=== PATIENT | male | born 1970 ===

== ENCOUNTER 2022-05-02 14:36 | Inpatient (IN) ==
[2022-05-02 15:30] LABS: INR 1.2; PT Patient Result 13.5 SECS (10.1-12.1); Partial Thromboplastin Time 30.6 SECS (23.7-32.9)
[2022-05-02] MEDS ORDERED: SODIUM CHLORIDE 0.9% 1,000 ML IV STA (15:30)
[2022-05-02 15:36] LABS: Alanine Aminotransferase 198 U/L (16-61); Albumin 3.2 G/DL (3.4-5.0); Alkaline Phosphatase 239 U/L (45-117); Aspartate Amino Transferase 263 U/L (0-37); Blood Urea Nitrogen 7 MG/DL (7-18); Calcium 8.9 MG/DL (8.5-10.1); Carbon Dioxide 29 MMOL/L (21-32); Chloride 91 MMOL/L (98-107); Glucose 155 MG/DL (74-106); Osmolality,Calculated 262.7 MOS/KG (273-304); Potassium 2.8 MMOL/L (3.5-5.1); Sodium 131 MMOL/L (136-145); Total Protein 7.7 G/DL (6.4-8.2)
[2022-05-02 16:37] LABS: Basophils % 0.2 % (0.0-0.8); Eosinophils % 0.5 % (0.00-10.9); Hematocrit 37.8 VOL% (42.0-52.0); Hemoglobin 13.2 GM/DL (14.0-18.0); Immature Granulocytes % 0.7 %; Immature Granulocytes Absolute 0.03 #; Lymphocytes # 0.8 10*3/uL (1.4-4.0); Lymphocytes % 18.9 % (21.2-54.2); Mean Corpuscular HGB Conc 34.9 GM/DL (32-36); Mean Corpuscular Volume 96.2 FL (87-102); Mean Platelet Volume 10.4 FL (9.6-12.0); Monocytes # 0.6 10*3/uL (0.11-0.8); Monocytes % 14.7 % (1.7-12.7); Red Blood Count 3.93 MC/CUMM (3.8-5.5); Red Cell Distribution Width 13.8 % (9.3-17.3); White Blood Count 4.35 T/CUMM (4-12)
[2022-05-02 16:39] LABS: Platelet Count 62 T/CUMM (130-400)
[2022-05-02 16:58] LABS: RBC,Urine 1 /HPF (0-4)
[2022-05-02 17:00] LABS: Platelet Estimate Decreased
[2022-05-02] MEDS ORDERED: POTASSIUM CHLORIDE 20 MEQ TABLET PO STA (17:03)
[2022-05-02 17:04] LABS: Glucose,Urine (UA) 500 mg/dL (Negative); Ketones,Urine 40 mg/dL (Negative); Nitrite,Urine Negative (Negative); Protein,Urine Negative (Negative); Urine Appearance Slightly Hazy (Clear); Urine Color Yellow (Yellow)
[2022-05-02 17:05] LABS: Bilirubin,Urine Small mg/dL (Negative); Blood, Urine Negative (Negative); Urine Urobilinogen > 8.0 eU/dL (<2.0)
[2022-05-02 17:17] LABS: Barbiturates Screen,Urine Negative (Negative); Benzodiazepines Screen,Urine Negative (Negative); Cannabinoid Screen,Urine Negative (Negative); Opiate Screen,Urine Positive (Negative); Phencyclidine Screen,Urine Negative (Negative)
[2022-05-02] MEDS ORDERED: LORazepam 2 MG/1 ML VIAL IV STA (18:56)
[2022-05-02] MEDS ORDERED: hydrALAZINE 20 MG/1 ML VIAL IV PRN (19:12)
[2022-05-02] MEDS ORDERED: GLUCAGON 1 MG VIAL IM PRN (19:12)
[2022-05-02] MEDS ORDERED: ONDANSETRON 4 MG/2 ML VIAL IV PRN (19:12)
[2022-05-02] MEDS ORDERED: PROMETHAZINE 25 MG/1 ML VIAL IM PRN (19:12)
[2022-05-02] MEDS ORDERED: DEXTROSE 10% 250 ML BAG IV PRN (19:39)
[2022-05-02] MEDS ORDERED: THIAMINE INJ 100 MG, FOLIC ACID INJ 1 MG, MULTIVITAMIN INJ 10 ML in SODIUM CHLORIDE 0.9... IV ONE (20:00)
[2022-05-02] MEDS: INSULIN LISPRO 100 UNIT/ML SUBCUT SCH (21:23)
[2022-05-02] MEDS: ENOXAPARIN 40 MG/0.4 ML SYRINGE SUBCUT SCH (21:25)
[2022-05-03 01:33] LABS: Basophils % 0.6 % (0.0-0.8); Eosinophils # 0.1 10*3/uL (0.0-0.87); Eosinophils % 1.7 % (0.00-10.9); Hematocrit 37.5 VOL% (42.0-52.0); Immature Granulocytes % 0.3 %; Immature Granulocytes Absolute 0.01 #; Lymphocytes # 0.7 10*3/uL (1.4-4.0); Lymphocytes % 21.6 % (21.2-54.2); Mean Corpuscular HGB Conc 34.7 GM/DL (32-36); Mean Corpuscular Volume 96.2 FL (87-102); Mean Platelet Volume 10.1 FL (9.6-12.0); Monocytes # 0.5 10*3/uL (0.11-0.8); Monocytes % 15.2 % (1.7-12.7); Neutrophils % 60.6 % (38.7-73.9); Platelet Count 61 T/CUMM (130-400); Red Cell Distribution Width 14.2 % (9.3-17.3); White Blood Count 3.43 T/CUMM (4-12)
[2022-05-03 02:12] LABS: Albumin 2.8 G/DL (3.4-5.0); Bilirubin,Total 3.9 MG/DL (0.20-1.00); Calcium 8.3 MG/DL (8.5-10.1); Osmolality,Calculated 266.4 MOS/KG (273-304); Potassium 2.9 MMOL/L (3.5-5.1); Risk Ratio 8.89; Thyroid Stimulating Hormone 1.54 uIU/ml (0.358-3.74); Total Protein 6.8 G/DL (6.4-8.2); VLDL Cholesterol 15.8 MG/DL
[2022-05-03 02:52] LABS: Folate > 24.00 NG/ML (5.38-24.0); Vitamin B12 1399 PG/ML (211-911)
[2022-05-03] MEDS: INSULIN LISPRO 100 UNIT/ML SUBCUT SCH ×4 (07:53→21:43)
[2022-05-03] MEDS: PANTOPRAZOLE 40 MG VIAL IV SCH (08:10)
[2022-05-03] MEDS: SODIUM CHLORIDE 0.9% 1,000 ML IV SCH ×2 (08:11→16:11)
[2022-05-03] MEDS: FOLIC ACID 1 MG TABLET PO SCH (08:11)
[2022-05-03] MEDS: MULTIVITAMIN (CENTRUM) TABLET PO SCH (08:11)
[2022-05-03] MEDS: POTASSIUM CHLORIDE 20 MEQ TABLET PO SCH ×3 (08:11→17:10)
[2022-05-03] MEDS: THIAMINE 100 MG TABLET PO SCH ×2 (08:12→21:39)
[2022-05-03] MEDS: chlordiazePOXIDE 25 MG CAPSULE PO SCH ×4 (08:12→21:39)
[2022-05-03] MEDS ORDERED: THIAMINE 200 MG/2 ML VIAL IV SCH (09:00)
[2022-05-03] MEDS ORDERED: chlordiazePOXIDE 25 MG CAPSULE PO SCH (09:00)
[2022-05-03] MEDS ORDERED: POTASSIUM CHLORIDE 20 MEQ TABLET PO SCH (17:30)
[2022-05-03] MEDS: ENOXAPARIN 40 MG/0.4 ML SYRINGE SUBCUT SCH (21:43)
[2022-05-03] MEDS: LORazepam 2 MG/1 ML VIAL IV PRN (23:15)
[2022-05-04] MEDS: SODIUM CHLORIDE 0.9% 1,000 ML IV SCH ×3 (01:28→17:33)
[2022-05-04 05:18] LABS: Basophils % 0.3 % (0.0-0.8); Eosinophils # 0.1 10*3/uL (0.0-0.87); Eosinophils % 2.8 % (0.00-10.9); Hematocrit 36.1 VOL% (42.0-52.0); Hemoglobin 12.2 GM/DL (14.0-18.0); Immature Granulocytes Absolute 0.03 #; Lymphocytes # 0.8 10*3/uL (1.4-4.0); Lymphocytes % 27.2 % (21.2-54.2); Mean Corpuscular HGB Conc 33.8 GM/DL (32-36); Mean Corpuscular Volume 97.6 FL (87-102); Mean Platelet Volume 9.9 FL (9.6-12.0); Monocytes # 0.4 10*3/uL (0.11-0.8); Monocytes % 15.2 % (1.7-12.7); Neutrophils % 53.5 % (38.7-73.9); Platelet Count 66 T/CUMM (130-400); Red Cell Distribution Width 14.6 % (9.3-17.3)
[2022-05-04 05:38] LABS: Albumin 2.4 G/DL (3.4-5.0); Bilirubin,Total 2.4 MG/DL (0.20-1.00); Calcium 8.4 MG/DL (8.5-10.1); Osmolality,Calculated 274.8 MOS/KG (273-304); Potassium 3.3 MMOL/L (3.5-5.1); Total Protein 6.4 G/DL (6.4-8.2)
[2022-05-04 05:52] LABS: Eosinophils 4 % (0-10); Lymphocytes 25 % (20-55); Platelet Estimate Decreased; Total Cells Counted 100
[2022-05-04] MEDS: INSULIN LISPRO 100 UNIT/ML SUBCUT SCH ×4 (08:35→20:35)
[2022-05-04] MEDS: chlordiazePOXIDE 25 MG CAPSULE PO SCH ×4 (09:15→20:35)
[2022-05-04] MEDS: PANTOPRAZOLE 40 MG VIAL IV SCH (09:15)
[2022-05-04] MEDS: FOLIC ACID 1 MG TABLET PO SCH (09:15)
[2022-05-04] MEDS: THIAMINE 100 MG TABLET PO SCH ×2 (09:15→20:36)
[2022-05-04] MEDS: MULTIVITAMIN (CENTRUM) TABLET PO SCH (09:15)
[2022-05-04] MEDS: LORazepam 2 MG/1 ML VIAL IV PRN ×2 (11:43→22:12)
[2022-05-04] MEDS ORDERED: POTASSIUM CHLORIDE 20 MEQ TABLET PO ONE (12:00)
[2022-05-04] MEDS: ENOXAPARIN 40 MG/0.4 ML SYRINGE SUBCUT SCH (20:36)
[2022-05-05] MEDS: SODIUM CHLORIDE 0.9% 1,000 ML IV SCH ×2 (01:04→08:50)
[2022-05-05 05:16] LABS: Basophils % 0.3 % (0.0-0.8); Eosinophils # 0.1 10*3/uL (0.0-0.87); Eosinophils % 2.9 % (0.00-10.9); Immature Granulocytes % 0.6 %; Immature Granulocytes Absolute 0.02 #; Lymphocytes # 0.9 10*3/uL (1.4-4.0); Lymphocytes % 28.2 % (21.2-54.2); Mean Corpuscular HGB Conc 34.2 GM/DL (32-36); Mean Platelet Volume 10.3 FL (9.6-12.0); Monocytes # 0.4 10*3/uL (0.11-0.8); Monocytes % 11.4 % (1.7-12.7); Neutrophils % 56.6 % (38.7-73.9); Platelet Count 71 T/CUMM (130-400); Red Blood Count 3.84 MC/CUMM (3.8-5.5); White Blood Count 3.08 T/CUMM (4-12)
[2022-05-05 05:42] LABS: INR 1.2; PT Patient Result 12.6 SECS (10.1-12.1)
[2022-05-05 05:48] LABS: Albumin 2.4 G/DL (3.4-5.0); Bilirubin,Direct 1.63 MG/DL (0.0-0.20); Bilirubin,Indirect 0.8 MG/DL (0.0-1.0); Bilirubin,Total 2.4 MG/DL (0.20-1.00); Calcium 8.2 MG/DL (8.5-10.1); Osmolality,Calculated 278.5 MOS/KG (273-304); Potassium 3.1 MMOL/L (3.5-5.1); Total Protein 6.3 G/DL (6.4-8.2)
[2022-05-05 06:00] LABS: Platelet Estimate Decreased
[2022-05-05 06:01] LABS: Anisocytosis 1+; Macrocytosis 1+
[2022-05-05 06:13] LABS: Hepatitis B Core IgM Quant 0.06 Index; Hepatitis B Surface Ag Quant < 0.10 Index; Hepatitis B Surface Ag Result Non-Reactive (NonReactive); Hepatitis C Virus Ab Quant < 0.02 Index; Hepatitis C Virus Ab Result Non-Reactive (NonReactive)
[2022-05-05] MEDS: INSULIN LISPRO 100 UNIT/ML SUBCUT SCH ×4 (08:00→20:48)
[2022-05-05] MEDS: chlordiazePOXIDE 25 MG CAPSULE PO SCH ×3 (08:47→20:48)
[2022-05-05] MEDS: MULTIVITAMIN (CENTRUM) TABLET PO SCH (08:47)
[2022-05-05] MEDS: PANTOPRAZOLE 40 MG VIAL IV SCH (08:47)
[2022-05-05] MEDS: FOLIC ACID 1 MG TABLET PO SCH (08:47)
[2022-05-05] MEDS: THIAMINE 100 MG TABLET PO SCH ×2 (08:47→20:49)
[2022-05-05] MEDS ORDERED: POTASSIUM PHOS/SOD PHOS POWDER 250 MG PACK PO ONE (12:47)
[2022-05-05] MEDS ORDERED: POTASSIUM CHLORIDE 20 MEQ TABLET PO ONE (12:50)
[2022-05-05] MEDS: LORazepam 2 MG/1 ML VIAL IV PRN ×2 (16:17→23:50)
[2022-05-05] MEDS: ENOXAPARIN 40 MG/0.4 ML SYRINGE SUBCUT SCH (20:49)
[2022-05-05] MEDS: QUEtiapine 25 MG TABLET PO SCH (20:49)
[2022-05-06 05:53] LABS: Calcium 9.1 MG/DL (8.5-10.1); Osmolality,Calculated 277.4 MOS/KG (273-304); Phosphorous 3.1 MG/DL (2.5-4.9); Potassium 3.7 MMOL/L (3.5-5.1)
[2022-05-06] MEDS: chlordiazePOXIDE 25 MG CAPSULE PO SCH ×2 (05:53→17:02)
[2022-05-06] MEDS: INSULIN LISPRO 100 UNIT/ML SUBCUT SCH ×4 (07:49→20:41)
[2022-05-06] MEDS: THIAMINE 100 MG TABLET PO SCH ×2 (08:25→20:42)
[2022-05-06] MEDS: FOLIC ACID 1 MG TABLET PO SCH (08:25)
[2022-05-06] MEDS: PANTOPRAZOLE 40 MG VIAL IV SCH (08:25)
[2022-05-06] MEDS: MULTIVITAMIN (CENTRUM) TABLET PO SCH (08:25)
[2022-05-06] MEDS: LORazepam 2 MG/1 ML VIAL IV PRN ×2 (14:14→22:26)
[2022-05-06] MEDS: QUEtiapine 25 MG TABLET PO SCH (20:41)
[2022-05-06] MEDS: ENOXAPARIN 40 MG/0.4 ML SYRINGE SUBCUT SCH (20:41)
[2022-05-07] MEDS: chlordiazePOXIDE 25 MG CAPSULE PO SCH ×2 (04:19→16:33)
[2022-05-07 05:21] LABS: Basophils % 0.4 % (0.0-0.8); Eosinophils # 0.1 10*3/uL (0.0-0.87); Eosinophils % 2.4 % (0.00-10.9); Hematocrit 40.7 VOL% (42.0-52.0); Hemoglobin 13.8 GM/DL (14.0-18.0); Immature Granulocytes % 0.9 %; Immature Granulocytes Absolute 0.04 #; Lymphocytes # 1.3 10*3/uL (1.4-4.0); Lymphocytes % 28.9 % (21.2-54.2); Mean Corpuscular HGB Conc 33.9 GM/DL (32-36); Mean Platelet Volume 10.1 FL (9.6-12.0); Monocytes # 0.6 10*3/uL (0.11-0.8); Monocytes % 12.1 % (1.7-12.7); Neutrophils % 55.3 % (38.7-73.9); Red Blood Count 4.07 MC/CUMM (3.8-5.5); Red Cell Distribution Width 15.5 % (9.3-17.3); White Blood Count 4.64 T/CUMM (4-12)
[2022-05-07 05:24] LABS: Platelet Count 96 T/CUMM (130-400)
[2022-05-07 05:41] LABS: Platelet Estimate Decreased
[2022-05-07 05:43] LABS: Albumin 2.6 G/DL (3.4-5.0); Bilirubin,Direct 1.34 MG/DL (0.0-0.20); Bilirubin,Indirect 0.8 MG/DL (0.0-1.0); Bilirubin,Total 2.1 MG/DL (0.20-1.00); Calcium 8.6 MG/DL (8.5-10.1); Osmolality,Calculated 274.7 MOS/KG (273-304); Potassium 3.6 MMOL/L (3.5-5.1); Total Protein 6.8 G/DL (6.4-8.2)
[2022-05-07] MEDS: MULTIVITAMIN (CENTRUM) TABLET PO SCH (08:02)
[2022-05-07] MEDS: FOLIC ACID 1 MG TABLET PO SCH (08:02)
[2022-05-07] MEDS: THIAMINE 100 MG TABLET PO SCH ×2 (08:02→21:04)
[2022-05-07] MEDS: PANTOPRAZOLE 40 MG VIAL IV SCH (08:03)
[2022-05-07] MEDS: INSULIN LISPRO 100 UNIT/ML SUBCUT SCH ×4 (08:06→21:05)
[2022-05-07] MEDS: LORazepam 2 MG/1 ML VIAL IV PRN ×3 (09:10→21:07)
[2022-05-07] MEDS: QUEtiapine 25 MG TABLET PO SCH (21:04)
[2022-05-07] MEDS: ENOXAPARIN 40 MG/0.4 ML SYRINGE SUBCUT SCH (21:05)
[2022-05-08] MEDS: chlordiazePOXIDE 25 MG CAPSULE PO SCH ×2 (05:09→17:34)
[2022-05-08] MEDS: MULTIVITAMIN (CENTRUM) TABLET PO SCH (09:14)
[2022-05-08] MEDS: FOLIC ACID 1 MG TABLET PO SCH (09:14)
[2022-05-08] MEDS: THIAMINE 100 MG TABLET PO SCH ×2 (09:14→21:32)
[2022-05-08] MEDS: PANTOPRAZOLE 40 MG VIAL IV SCH (09:14)
[2022-05-08] MEDS: INSULIN LISPRO 100 UNIT/ML SUBCUT SCH ×4 (09:14→21:32)
[2022-05-08] MEDS: LORazepam 2 MG/1 ML VIAL IV PRN ×3 (09:21→23:45)
[2022-05-08] MEDS: ENOXAPARIN 40 MG/0.4 ML SYRINGE SUBCUT SCH (21:32)
[2022-05-08] MEDS: QUEtiapine 25 MG TABLET PO SCH (21:32)
[2022-05-09] MEDS: chlordiazePOXIDE 25 MG CAPSULE PO SCH (04:21)
[2022-05-09] MEDS: THIAMINE 100 MG TABLET PO SCH (08:19)
[2022-05-09] MEDS: FOLIC ACID 1 MG TABLET PO SCH (08:20)
[2022-05-09] MEDS: MULTIVITAMIN (CENTRUM) TABLET PO SCH (08:20)
[2022-05-09] MEDS: PANTOPRAZOLE 40 MG VIAL IV SCH (08:21)
[2022-05-09] MEDS: LORazepam 2 MG/1 ML VIAL IV PRN ×2 (08:32→11:45)
[2022-05-09] MEDS: INSULIN LISPRO 100 UNIT/ML SUBCUT SCH ×3 (08:32→12:08)
[2022-05-09 11:41] VITALS: BP 90/56
== END 2022-05-09 13:10 | disposition home or self-care (01) | DRG 897 ==
LOC: N.ED 14:36 → N.EDINP 19:12 → SUATTDRO 19:12 → N.3E 21:46
PROVIDERS: ADMIT Internal Medicine; ATTEND Emergency Medicine